=== PATIENT | male | born 1985 | race Caucasian/White ===

== ENCOUNTER 2017-08-17 00:09 | Emergency (ER) | payer OTHER ==
[~2017-08-17] VITALS: Ht 154.9 cm; Wt 89.5 kg
[2017-08-17 00:18] VITALS: Ht 154.9 cm; Wt 89.5 kg
[2017-08-17] MEDS ORDERED: SOD CHLORIDE 0.9% 1,000 ML IV STA (00:28)
[2017-08-17] MEDS ORDERED: morphine 2 MG INJ IV ONE (00:30)
[2017-08-17] MEDS ORDERED: CEFAZOLIN 1 GM/50 ML (PMX) 50 ML IVPB SCH (00:30)
[2017-08-17] MEDS ORDERED: ONDANSETRON 4 MG INJ IV ONE (00:30)
--- NOTE | 2017-08-17 00:51 | RADRPT ---
PROCEDURE: Portable chest x-ray. CLINICAL INDICATION: Injury, chest pain. TECHNIQUE: Portable AP view of the chest. COMPARISON: 05/11/2008. FINDINGS: There is a new moderate left pleural effusion. No pneumothorax is identified. No pulmonary edema or conolidation is identified. The cardiac silhouette is not enlarged No fracture is identified. IMPRESSION: 1. New moderate left pleural effusion, nonspecific. RPTAT: HTAR .Jose Linares MD, MD Date Time Electronically viewed and signed by .Jose Linares MD, MD on 08/17/2017 00:50 .R/
[2017-08-17 00:52] LABS: BASOPHIL # 0.1 10^3/ul (0.0-0.1); BASOPHILS % 0.5 % (0.0-2.0); EOSINOPHILS # 0.2 10^3/ul (0.0-0.5); EOSINOPHILS % 2.2 % (0.0-7.0); HEMATOCRIT 43.1 % (42.0-52.0); HEMOGLOBIN 14.4 g/dl (14.0-18.0); LYMPHOCYTES # 1.9 10^3/ul (0.8-2.9); LYMPHOCYTES % 18.4 % (15.0-51.0); MEAN CORPUSCULAR HEMOGLOBIN 30.5 pg (29.0-33.0); MEAN CORPUSCULAR HGB CONC 33.4 g/dl (32.0-37.0); MEAN CORPUSCULAR VOLUME 91.3 fl (82.0-101.0); MEAN PLATELET VOLUME 9.9 fl (7.4-10.4); MONOCYTE # 0.6 10^3/ul (0.3-0.9); MONOCYTES % 5.8 % (0.0-11.0); NEUTROPHIL # 7.6 10^3/ul (1.6-7.5); NEUTROPHILS % 72.7 % (39.0-77.0); PLATELET COUNT 292 10^3/UL (140-415); RED BLOOD COUNT 4.72 10^6/ul (4.70-6.10); RED CELL DISTRIBUTION WIDTH 12.4 % (11.5-14.5); WHITE BLOOD COUNT 10.5 10^3/ul (4.8-10.8)
[2017-08-17 01:09] LABS: INR 0.94; PARTIAL THROMBOPLASTIN TIME 27.7 Sec (25.0-35.0); PROTIME 12.6 Sec (12.2-14.2)
[2017-08-17] MEDS ORDERED: SOD CHLORIDE 0.9% 100 ML ONE (01:10)
[2017-08-17] MEDS ORDERED: IOHEXOL 300MG/ML 150 ML BTL ONE (01:10)
[2017-08-17 01:17] LABS: ANION GAP 11 (8-16); BLOOD UREA NITROGEN 14 mg/dl (7-20); CALCIUM 9.3 mg/dl (8.4-10.2); CARBON DIOXIDE 30 mmol/L (21-31); CHLORIDE 103 mmol/L (97-110); CREATININE 1.04 mg/dl (0.61-1.24); GLUCOSE 70 mg/dl (70-220); POTASSIUM 3.6 mmol/L (3.5-5.1); SODIUM 140 mmol/L (135-144)
[2017-08-17 01:19] LABS: ETHANOL < 10.0 mg/dl
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
--- NOTE | 2017-08-17 01:52 | RADRPT ---
PROCEDURE: CT Chest with and without contrast. CLINICAL INDICATION: Trauma, flank wound TECHNIQUE: CT scan of the chest with and without contrast was performed on a multidetector high-re solution CT scanner. The patient was scanned following the intravenous administration of 100 cc of Omnipaque-300 contrast. Coronal and sagittal reformatted images were obtained from the axial source images. Images were reviewed on a high-resolution PACS workstation. The total exam CTDI equals 16.1 7 +19.37 mGy and the total exam DLP equals 1484.58 mGy-cm. One or more the following dose reduction techniques were utilized: Automated exposure control, adjus tment of the mA and / or kV according to patient's size, or use of iterative reconstruction techniqu e. COMPARISON: Chest x-ray of 08/17/2017 FINDINGS: Very small amount of residual thymic tissue in the anterior mediastinum. No mediastinal hematoma is seen. No acute fracture seen. Old left lower lateral rib fracture. There is a small to moderate left lower lateral posterior loculated appearing hemothorax with impression on the lateral left hemidiap hragm with left lower lobe partial atelectasis. There is adjacent hematoma measuring approximately 8 .2 x 3.7 x 6.3 cm in the left lower lateral chest and upper abdominal wall with overlying soft tissu e stranding in the subcutaneous fat. There is the suggestion of small amount of active bleeding in t he hemothorax. Small amount of active bleeding is also apparent in the lower chest wall hematoma. No pneumothorax is seen. Minimal dependent atelectasis in posterior lungs. No abnormality of the thora cic aorta is seen. No abnormality is seen in the visualized upper to mid kidneys, spleen, liver, gal lbladder, pancreas, adrenals. No definite abnormality of the stomach is seen. No pneumoperitoneum is seen in the visualized upper abdomen. No definite hemoperitoneum is seen in the visualized upper abdomen. No abnormality of bowel is seen in the visualized upper abdomen. Degenerative changes in vi sualized lower cervical spine. IMPRESSION: Small to moderate left lower lateral posterior loculated appearing hemothorax with impression on the lateral left hemidiaphragm with left lower lobe partial atelectasis. There is adjacent hematoma rosario suring approximately 8.2 x 3.7 x 6.3 cm in the left lower lateral chest and upper abdominal wall wit h overlying soft tissue stranding in the subcutaneous fat. There is the suggestion of small amount o f active bleeding in the hemothorax. Small amount of active bleeding is also apparent in the lower c hest/upper abdominal wall hematoma. Discussed with Dr. Culver at 01:50 a.m. on 08/17/2017. RPTAT: HJES .Nathan Ferguson MD, MD Date Time Electronically viewed and signed by .Nathan Ferguson MD, MD on 08/17/2017 01:52 .S/
[2017-08-17 02:19] VITALS: BP 133/93; PULSE 76; RESP 16; TEMP 98.5
== END 2017-08-17 02:42 | disposition short-term general hospital (02) ==
LOC: E/R 00:09
DX: S27.1XXA Traumatic hemothorax, initial encounter (principal); F17.210 Nicotine dependence, cigarettes, uncomplicated; X58.XXXA Exposure to other specified factors, initial encounter; Y92.9 Unspecified place or not applicable
CPT/HCPCS: 36415; 71010; 71270; 80048; 80306; 85025; 85610; 85730; 93005; 96374; 96375; J0690; J2270; J2405; J7030; Q9967; Z7502; Z7610